=== PATIENT | female | born 1955 | race Caucasian/White ===

== ENCOUNTER → 2017-03-12 | Outpatient (CLI) | payer MEDICARE ==
--- NOTE | 2017-03-13 11:03 | MM ---
Reason for exam: screening (asymptomatic). Last mammogram was performed 1 year and 3 months ago. History: Patient is postmenopausal. Taking estrogen for 25 years. Physical Findings: A clinical breast exam by your physician is recommended on an annual basis and results should be correlated with mammographic findings. MG 3D Screening Mammo W/Cad Bilateral CC and MLO view(s) were taken. Prior study comparison: December 17, 2015, mammogram. October 03, 2014, mammogram. There are scattered fibroglandular densities. No significant changes when compared with prior studies. ASSESSMENT: Negative, BI-RAD 1 RECOMMENDATION: Routine screening mammogram of both breasts in 1 year.
== END | disposition home or self-care (01) ==
LOC: RADMAMWWP 13:13
PROVIDERS: ATTEND Family Medicine
DX: Z12.31 Encounter for screening mammogram for malignant neoplasm of breast (principal)
CPT/HCPCS: 77063; 77067

== ENCOUNTER → 2017-05-27 | Outpatient (CLI) | payer MEDICARE ==
[2017-05-27 16:51] LABS: Calcium 9.9 mg/dL (8.4-10.2); Potassium 4.7 mmol/L (3.5-5.1)
== END | disposition home or self-care (01) ==
LOC: LABWHC1 16:00
PROVIDERS: ATTEND Internal Medicine Clinical Cardiac Electrophysiology
DX: I10 Essential (primary) hypertension (principal)
CPT/HCPCS: 36415; 80048

== ENCOUNTER → 2018-06-01 | Outpatient (CLI) | payer MEDICARE ==
--- NOTE | 2018-06-02 11:39 | MM ---
Reason for exam: screening (asymptomatic). Last mammogram was performed 1 year and 3 months ago. History: Patient is postmenopausal. Taking estrogen for 25 years. Physical Findings: A clinical breast exam by your physician is recommended on an annual basis and results should be correlated with mammographic findings. MG 3D Screening Mammo W/Cad Bilateral CC and MLO view(s) were taken. Prior study comparison: March 12, 2017, bilateral MG 3d screening mammo w/cad. December 17, 2015, mammogram. The breast tissue is heterogeneously dense. This may lower the sensitivity of mammography. There are benign appearing round calcifications bilaterally including grouped calcifications in the right upper outer quadrant. There is no discrete abnormality. ASSESSMENT: Benign, BI-RAD 2 RECOMMENDATION: Routine screening mammogram of both breasts in 1 year.
== END | disposition home or self-care (01) ==
LOC: RADMAMWWP 09:11
PROVIDERS: ATTEND Family Medicine
DX: Z12.31 Encounter for screening mammogram for malignant neoplasm of breast (principal)
CPT/HCPCS: 77063; 77067

== ENCOUNTER → 2019-05-06 | Outpatient (CLI) | payer MEDICARE ==
[2019-05-06 16:20] LABS: Chol/HDL Ratio 2.79; LDL Cholesterol,Calculated 54.4 mg/dL (0.0-131.0); VLDL Calculation 29.6 mg/dL (5.00-40.00)
== END | disposition home or self-care (01) ==
LOC: LABWHC1 09:15
PROVIDERS: ATTEND Nurse Practitioner Adult Health
DX: E78.2 Mixed hyperlipidemia (principal)
CPT/HCPCS: 36415; 80061

== ENCOUNTER 2019-05-08 | Emergency (ER) | payer MEDICARE | END 2019-05-08 02:06 | disposition home or self-care (01) | CPT/HCPCS: 36415; 93005; 80053; 83605; 84484; 85025; 71046; 99284; 96374; 96361; J2930 ==

== ENCOUNTER → 2019-10-20 | Outpatient (CLI) | payer MEDICARE ==
[2019-10-20 23:37] LABS: Cyclic Citrull Pep IgG Unit <0.5 U/mL; Cyclic Citrullinated Pep IgG NEGATIVE (NEGATIVE)
== END | disposition home or self-care (01) ==
LOC: LABWHC1 12:33
PROVIDERS: ATTEND Family Medicine
DX: H04.123 Dry eye syndrome of bilateral lacrimal glands (principal); Z87.898 Personal history of other specified conditions
CPT/HCPCS: 36415; 86038; 86200; 86235; 86431

== ENCOUNTER → 2019-11-02 | Outpatient (CLI) | payer MEDICARE ==
--- NOTE | 2019-11-02 14:04 | CT ---
EXAMINATION TYPE: CT brain w con DATE OF EXAM: 11/02/2019 COMPARISON: 04/03/2011 HISTORY: Dizziness and dysdiadochokinesis. CT DLP: 1217.1 mGycm Automated exposure control for dose reduction was used. CONTRAST: CT scan of the head is performed with IV Contrast, patient injected with 100 mL of Isovue M300. FINDINGS: Metallic are artifacts limits assessment of portions of the left temporal lobe and posterio r fossa. Moderate generalized degenerative change. Periventricular low attenuation is nonspecific. No midline shift or mass effect. No acute hemorrhage. Calvarium intact. Craniocervical junction maintained. IMPRESSION: Degenerative and nonspecific white matter changes most typical of remote microvascular ischemia.
== END | disposition home or self-care (01) ==
LOC: RADCTMAIN 12:37
PROVIDERS: ATTEND Family Medicine
DX: R90.82 White matter disease, unspecified (principal); I67.82 Cerebral ischemia; R42 Dizziness and giddiness
CPT/HCPCS: 82565; 84520; 70460; 36415; Q9967

== ENCOUNTER 2019-12-03 17:21 | Emergency (ER) | payer MEDICARE ==
[2019-12-03 17:27] VITALS: RESP 16; TEMP 98.4
--- NOTE | 2019-12-03 18:24 | XR ---
EXAMINATION TYPE: XR shoulder complete LT DATE OF EXAM: 12/03/2019 COMPARISON: NONE HISTORY: Fall. Pain. TECHNIQUE: 3 views FINDINGS: I see no fracture nor dislocation. There is minimal spurring at the glenohumeral joint. The re is old healed fracture of the left clavicle. There is extensive calcified granulomatous change in the mediastinum. IMPRESSION: No acute abnormality of the left shoulder.
[2019-12-03 18:43] VITALS: BP 119/86; PULSE 85
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
== END 2019-12-03 19:21 | disposition home or self-care (01) ==
LOC: EC 17:21
DX: S40.022A Contusion of left upper arm, initial encounter (principal); V94.0XXA Hitting object or bottom of body of water due to fall from watercraft, initial encounter; I10 Essential (primary) hypertension; E11.9 Type 2 diabetes mellitus without complications; F32.9 Major depressive disorder, single episode, unspecified; Z79.82 Long term (current) use of aspirin; Z79.899 Other long term (current) drug therapy; Z79.84 Long term (current) use of oral hypoglycemic drugs; Z79.890 Hormone replacement therapy; Z88.1 Allergy status to other antibiotic agents; Z91.048 Other nonmedicinal substance allergy status; Z88.8 Allergy status to other drugs, medicaments and biological substances
CPT/HCPCS: 99283

== ENCOUNTER → 2020-01-20 | Outpatient (CLI) | payer MEDICARE ==
--- NOTE | 2020-01-23 12:14 | MM ---
Reason for exam: screening (asymptomatic). Last mammogram was performed 1 year and 8 months ago. History: Patient is postmenopausal. Took estrogen for 25 years. Physical Findings: A clinical breast exam by your physician is recommended on an annual basis and results should be correlated with mammographic findings. MG 3D Screening Mammo W/Cad Bilateral CC and MLO view(s) were taken. Prior study comparison: June 01, 2018, bilateral MG 3d screening mammo w/cad. March 12, 2017, bilateral MG 3d screening mammo w/cad. There are scattered fibroglandular densities. Posterior right upper outer quadrant focal asymmetry is larger and more defined. ASSESSMENT: Incomplete: need additional imaging evaluation, BI-RAD 0 RECOMMENDATION: Special view mammogram and ultrasound of the right breast. (3D) [facility] will attempt to contact patient to return for supplemental views and ultrasound.
== END | disposition home or self-care (01) ==
LOC: RADMAMWWP 10:47
PROVIDERS: ATTEND Family Medicine
DX: Z12.31 Encounter for screening mammogram for malignant neoplasm of breast (principal)
CPT/HCPCS: 77063; 77067

== ENCOUNTER → 2020-01-25 | Outpatient (CLI) | payer MEDICARE ==
--- NOTE | 2020-01-25 11:48 | MM ---
Reason for exam: additional evaluation requested from abnormal screening. Last mammogram was performed less than 1 month ago. History: Patient is postmenopausal. Took estrogen for 25 years. Physical Findings: Nurse Summary: 1cm nodule in the right breast at 11 o'clock (nurse mj). MG 3D Work Up W/Cad RT Spot compression CC, spot compression ML, and LM view(s) were taken of the right breast. Prior study comparison: January 20, 2020, bilateral MG 3d screening mammo w/cad. June 01, 2018, bilateral MG 3d screening mammo w/cad. There are scattered fibroglandular densities. Finding is changed when compared to the most recent exam. These results were verbally communicated with the patient and result sheet given to the patient on 01/25/20. ASSESSMENT: Incomplete: need additional imaging evaluation, BI-RAD 0 RECOMMENDATION: Ultrasound of the right breast.
--- NOTE | 2020-01-25 11:49 | USB ---
Reason for exam: additional evaluation requested from abnormal screening. History: Patient is postmenopausal. Took estrogen for 25 years. US Breast Workup Limited RT Right limited breast ultrasound including focal area of concern, retroareolar and axilla demonstrates a 0.3 x 1.2 x 0.6cm oval lymph node at 11 o'clock BB and a 1.5 x 1.3 x 1.0cm oval lymph node at the axilla. These results were verbally communicated with the patient and result sheet given to the patient on 01/25/20. ASSESSMENT: Probably benign, BI-RAD 3 RECOMMENDATION: Follow-up diagnostic mammogram of the right breast in 6 months.
== END | disposition home or self-care (01) ==
LOC: RADMAMWWP 09:28
PROVIDERS: ATTEND Family Medicine
DX: R92.8 Other abnormal and inconclusive findings on diagnostic imaging of breast (principal)
CPT/HCPCS: 77065; 76642; G0279; 77061

== ENCOUNTER → 2020-05-28 | Outpatient (CLI) | payer MEDICARE ==
[2020-05-28 22:59] LABS: Albumin 4.6 g/dL (3.80-4.90); Albumin/Globulin Ratio 2.56 (1.60-3.17); Anion Gap 7.6 mmol/L (4.00-12.00); Calcium 10.2 mg/dL (8.7-10.3); Carbon Dioxide 27.4 mmol/L (21.6-31.8); Chol/HDL Ratio 2.51; Globulin 1.8 g/dL (1.6-3.3); LDL Cholesterol,Calculated 50.8 mg/dL (0.0-131.0); Non-African American GFR(CKD) 58.7 (60.0-200.0); Potassium 4.8 mmol/L (3.5-5.5); Total Bilirubin 0.6 mg/dL (0.2-1.2); Total Protein 6.4 g/dL (6.2-8.2); VLDL Calculation 17.2 mg/dL (5.00-40.00)
== END | disposition home or self-care (01) ==
LOC: LABWHC1 09:10
PROVIDERS: ATTEND Nurse Practitioner Adult Health
DX: E78.00 Pure hypercholesterolemia, unspecified (principal)
CPT/HCPCS: 36415; 80053; 80061

== ENCOUNTER → 2020-07-26 | Outpatient (CLI) | payer MEDICARE ==
--- NOTE | 2020-07-26 13:48 | MM ---
Reason for exam: follow-up at short interval from prior study. Last mammogram was performed 6 months ago. History: Patient is postmenopausal. Took estrogen for 25 years. Physical Findings: Nurse did not find any significant physical abnormalities on exam. MG 3D Diag Mammo W/Cad RT CC, MLO, and XCCL view(s) were taken of the right breast. Prior study comparison: January 25, 2020, right breast MG 3d work up w/cad RT. January 20, 2020, bilateral MG 3d screening mammo w/cad. The breast tissue is heterogeneously dense. This may lower the sensitivity of mammography. Finding: Right 10 o'clock suspicious increased heterogeneous calcifications 10cm from nipple. Underlying 7mm nodule. Right ultrasound recommended. Increase in number of calcifications since January 20, 2020 and January 25, 2020. These results were verbally communicated with the patient and result sheet given to the patient on 07/26/20. ASSESSMENT: Incomplete: need additional imaging evaluation, BI-RAD 0 RECOMMENDATION: Ultrasound of the right breast.
--- NOTE | 2020-07-26 13:50 | USB ---
Reason for exam: additional evaluation requested from abnormal screening. History: Patient is postmenopausal. Took estrogen for 25 years. US Breast Workup Limited RT Right limited breast ultrasound including focal area of concern, retroareolar and axilla demonstrates a 0.9cm oval lymph node at the axilla tail. No sonographic finding for underlying nodule. Stereotactic biopsy for increased calcifications. These results were verbally communicated with the patient and result sheet given to the patient on 07/26/20. ASSESSMENT: Suspicious, BI-RAD 4 RECOMMENDATION: Stereotactic core biopsy of the right breast. Called Dr. Moyer's office with mammographic findings and has scheduled an appointment for the patient for 07/27/20 at 12:[address] Loaiza. Biopsy scheduled for 08/03/20 at 8:00. PRELIMINARY REPORT CALLED AND FAXED TO DR. LOAIZA ON 07/26/20.
== END | disposition home or self-care (01) ==
LOC: RADMAMWWP 10:03
PROVIDERS: ATTEND Family Medicine
DX: N63.10 Unspecified lump in the right breast, unspecified quadrant (principal); R92.1 Mammographic calcification found on diagnostic imaging of breast; Z78.0 Asymptomatic menopausal state
CPT/HCPCS: 77065; 76642; G0279; 77061

== ENCOUNTER → 2020-07-27 | Outpatient (CLI) | payer MEDICARE ==
[2020-07-27 11:47] VITALS: BP 126/84; PULSE 76; RESP 18; TEMP 97.9
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
== END ==
LOC: WWCWWP 11:35
PROVIDERS: ATTEND Surgery
DX: R92.8 Other abnormal and inconclusive findings on diagnostic imaging of breast (principal); N60.11 Diffuse cystic mastopathy of right breast; N60.12 Diffuse cystic mastopathy of left breast; K57.90 Diverticulosis of intestine, part unspecified, without perforation or abscess without bleeding; H91.92 Unspecified hearing loss, left ear; R42 Dizziness and giddiness; B39.9 Histoplasmosis, unspecified; Z87.442 Personal history of urinary calculi; E11.9 Type 2 diabetes mellitus without complications; I10 Essential (primary) hypertension; J44.9 Chronic obstructive pulmonary disease, unspecified; F32.9 Major depressive disorder, single episode, unspecified; Z79.84 Long term (current) use of oral hypoglycemic drugs; Z79.899 Other long term (current) drug therapy

== ENCOUNTER → 2020-08-03 | Day surgery (SDC) | payer MEDICARE ==
[2020-08-03 07:50] VITALS: BP 134/80; PULSE 90; RESP 16; TEMP 98.1
--- NOTE | 2020-08-03 09:06 | P.PCN ---
Date of Procedure: 08/03/20 Preoperative Diagnosis: Microcalcifications of concern right breast Postoperative Diagnosis: Same Procedure(s) Performed: Right breast stereotactic core biopsy Anesthesia: local Surgeon: Nicole Loaiza Pathology: other (Breast tissue, microcalcifications of concern included in specimen) Condition: stable Disposition: same day Indications for Procedure: Microcalcifications of concern right breast located at 10:00 Operative Findings: Radiographic specimen revealed microcalcifications of concern Description of Procedure: Ronaldo is a 65-year-old white female who on a mammogram was noted to have an area of increasing microcalcifications in the right breast at 10:00. This appeared to be associated with a nodule however ultrasound was performed and no nodule was identified at this site. Therefore stereotactic core biopsy was recommended. Risks and benefits of the procedure as well as alternatives were discussed with the patient and she wished to proceed. The patient was brought to the stereotactic core biopsy room. She was po sitioned on the lo-rad table. A vibratory pile driver film was obtained. The area of concern was identified. A lateral to medial approach was utilized. The lesion was targeted. The breast was prepped using chlorhexidine. 20 mL of 1% lidocaine were used to anesthetize the area of concern. A 9-gauge vacuum-assisted core rotating biopsy needle was driven to the correct coordinates. A prefire film was obtained. The needle was noted to be in the correct location. The needle was fired. Post-fire film was obtained. The needle was noted to be in the correct location. 12 core biopsy samples were obtained. Radiograph of the specimen revealed the area of concern had been adequately sampled with inclusion of microcalcifications within the specimen. A secure everardo top-chicken hatchery helper was then deployed and left in place. Radiograph revealed this to be in the correct location. The patient tolerated the procedure in stable condition. The specimen was sent to pathology. The patient will follow-up Dr. Harper next week.
--- NOTE | 2020-08-03 20:24 | MM ---
EXAMINATION TYPE: MG stereo VAD BX RT DATE OF EXAM: 08/03/2020 COMPARISON: 07/26/2020 and 01/25/2020 CLINICAL HISTORY: 65-year-old female referred for stereotactic core needle biopsy of right breast microcalcifications, R92.8. TECHNIQUE: Stereotactic guided core biopsy of the right breast. FINDINGS: The procedure of stereotactic guided core biopsy was explained to the patient. Benefits, alternatives, and risks were discussed. An informed consent was then obtained. The shortness pathway for biopsy was chosen. Shortness pathway was a superior approach. I performed the localization, then surgeon, Dr. Leroy Ramachandran performed the remainder of the procedure. A vacuum assisted biopsy gun was used to obtain multiple core samples. The patient tolerated the procedure well without any immediate complication. The patient was kept in the radiology department for short stay after the procedure and then discharged home in stable condition. Targeted calcifications are identified in specimen mammogram. Post biopsy mammogram shows the clip to appear in satisfactory position relative to the targeted area of concern on the preprocedure images. Some minimal residual microcalcifications are noted adjacent to the clip. IMPRESSION: SUCCESSFUL, UNCOMPLICATED STEREOTACTIC GUIDED CORE BIOPSY OF POSTERIOR UPPER OUTER QUADRANT SITE OF MICROCALCIFICATIONS IN THE RIGHT BREAST. SOME MINIMAL RESIDUAL CALCIFICATIONS ARE PRESENT ADJACENT TO THE CLIP. FULL PATHOLOGY RESULTS TO FOLLOW. Pathology Results: High Risk RIGHT BREAST, STEREOTACTIC CORE BIOPSY: Flat epithelial atypia (FEA/ADH) with associated calcifications and focal atypical lobular hyperplasia (ALH). Background fibrocystic changes including columnar cell change and columnar cell hyperplasia. Recommendation Surgical consult of the right breast. SAMUEL
== END ==
LOC: RADMAMWWP 07:09
PROVIDERS: ATTEND Surgery
DX: N60.11 Diffuse cystic mastopathy of right breast (principal); R92.1 Mammographic calcification found on diagnostic imaging of breast; R92.8 Other abnormal and inconclusive findings on diagnostic imaging of breast; Z88.1 Allergy status to other antibiotic agents; Z88.8 Allergy status to other drugs, medicaments and biological substances; Z91.048 Other nonmedicinal substance allergy status
CPT/HCPCS: 88305; 19081; A4648; J2001

== ENCOUNTER → 2020-08-10 | Outpatient (CLI) | payer MEDICARE ==
[2020-08-10 14:09] VITALS: BP 122/83; PULSE 95; RESP 18; TEMP 98.3
--- NOTE | 2020-08-10 14:12 | P.PN ---
Subjective Progress Note Date: 08/10/20 Principal diagnosis: Atypical lobular hyperplasia on stereotactic core biopsy Ronaldo is a 65 year old white female status [place] [address]. Pathology revealed flat epithelial atypia as well as focal atypical lobular hyperplasia. She tolerated the procedure well. Objective - Vital Signs Vital signs: Vital Signs Temp 98.3 F 08/10/20 14:05 Pulse 95 08/10/20 14:05 Resp 18 08/10/20 14:05 BP 122/83 08/10/20 14:05 Pulse Ox 97 08/10/20 14:05 Intake & Output 08/09/20 08/10/20 08/10/20 18:59 06:59 18:59 Weight 87.997 kg - Exam BMI 31.3 - Constitutional General appearance: Present: average body habitus - EENT Eyes: Present: EOMI ENT: Present: hearing grossly normal - Integumentary Integumentary Comment(s): Biopsy site right breast clean and dry, no evidence of infection, mild ecchymosis Assessment and Plan Assessment: Impression: 1. Atypical lobular hyperplasia/fat flat epithelial atypia right breast inserted to core biopsy Plan: 1. Needle localization excisional lumpectomy right breast, possible hyperplastic tissue transfer CC: Dr. Moyer
== END ==
LOC: WWCWWP 13:43
PROVIDERS: ATTEND Surgery
DX: N60.91 Unspecified benign mammary dysplasia of right breast (principal); Z88.1 Allergy status to other antibiotic agents; Z91.041 Radiographic dye allergy status; Z88.7 Allergy status to serum and vaccine; Z88.5 Allergy status to narcotic agent

== ENCOUNTER 2020-09-11 12:10 | Day surgery (SDC) | payer MEDICARE ==
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
[2020-09-05 13:09] VITALS: BMI 31.9
[~2020-09-11 12:10] MED LIST: DEXAMETHASONE SOD PHOSPHATE 4 MG/ML 1 ML VIAL IV ONE; HEPARIN SODIUM,PORCINE/PF 5,000 UNIT/0.5 ML SYRINGE SQ PRN; HYDROmorphone 0.5 MG/0.5 ML SYRINGE IVP PRN; LACTATED RINGERS 1,000 ML IV SCH; MIDAZOLAM 2 MG/2 ML VIAL IV PRN; ONDANSETRON 4 MG/2 ML VIAL IVP ONE; Pre Op ABX Message 1 EACH MISC MISCELLANE ONE
[2020-09-11] MEDS ORDERED: LIDOCAINE 1% (10MG/ML) FOR IV START INTRADERMA ONE (13:01)
[2020-09-11 13:12] LABS: Glucose,Whole Blood 115 mg/dL (75-99)
[2020-09-11] MEDS ORDERED: LIDOCAINE 1% INJ 10MG/ML (20 ML MDV) SQ ONE ×3 (13:57→15:42)
--- NOTE | 2020-09-11 14:49 | MM ---
EXAMINATION TYPE: MG pre op needle loc RT DATE OF EXAM: 09/11/2020 COMPARISON: 08/03/2020, 07/26/2020 CLINICAL HISTORY: Abnormal prior mammogram TECHNIQUE: Needle localization with wire placement and surgical excision of area of concern in the ri t breast. FINDINGS: The procedure of needle localization with wire placement and than surgical excision was exp lained to the patient. Benefits, alternatives, and risks were discussed. An informed consent was th en obtained. The shortest pathway for procedure was chosen. Shortest pathway was lateral approach. The overlying skin was prepped and draped in usual sterile fashion. Lidocaine buffered with bicarbonate was used a s anesthetic into the skin and subcutaneous tissue up to the level of area of concern. A 7 cm needle was used. It was placed via a right approach under mammographic guidance. Subsequent 90 degrees ma mmogram show the needle to be in satisfactory position relative to the targeted area. At this point, wire was placed and the needle was withdrawn. The wire was fixed to patient's skin. Images were ma rked for surgeon. The patient tolerated the procedure well without any immediate complication. The patient was kept in the radiology department for short stay after the procedure and then taken to surgery for surgical e xcision. IMPRESSION: Successful, uncomplicated needle localization with wire placement and surgical excision o f high risk lesion in the right breast, full pathology results to follow.
[2020-09-11] MEDS ORDERED: KETAMINE 10 MG/ML 20 ML VIAL ONE (15:15)
[2020-09-11] MEDS ORDERED: PROPOFOL 10 MG/ML 20 ML VIAL IV ONE (15:15)
[2020-09-11] MEDS ORDERED: LIDOCAINE 1% INJ 10MG/ML (20 ML MDV) ONE (15:15)
[2020-09-11] MEDS ORDERED: PHENYLEPHRINE-0.9% NACL SYG 1,000 MCG/10 ML SYRINGE ONE (15:15)
[2020-09-11] MEDS ORDERED: fentaNYL (PF) 50 MCG/ML 2 ML AMP ONE (15:15)
[2020-09-11] MEDS ORDERED: MIDAZOLAM 2 MG/2 ML VIAL ONE (15:15)
--- NOTE | 2020-09-11 16:29 | P.OP ---
Date of Procedure: 09/11/20 Preoperative Diagnosis: Atypia on core biopsy right breast Postoperative Diagnosis: Same Procedure(s) Performed: Needle localization excisional biopsy right breast Anesthesia: ABELARDOA Surgeon: Nicole Loaiza Estimated Blood Loss (ml): 5 IV fluids (ml): 400 Pathology: other (Breast tissue) Condition: stable Disposition: same day Indications for Procedure: Atypia on core biopsy Operative Findings: Fibrofatty breast tissue Description of Procedure: Following needle localization of an area of concern in the right breast the patient was brought to the operating room. Following induction of anesthesia the right breast was prepped and draped in a sterile fashion. An incision was made and carried down to the localizing wire. Surrounding tissue was excised. The specimen was painted for orientation. Radiograph of the specimen revealed the lesion of concern had been removed. Titanium clips were placed. The cavity was examined for hemostasis. The cavity was closed with 3-0 Vicryl sutures. The skin was closed using 4-0 Monocryl. The patient tolerated the procedure in stable condition. All instrument and sponge counts were correct at the end of the case.
--- NOTE | 2020-09-11 16:31 | P.DS ---
Providers Attending physician: Nicole Loaiza Primary care physician: Bruno Moyer Plan - Discharge Summary Discharge Rx Participant: No New Discharge Prescriptions: No Action Spironolactone [Aldactone] 25 mg PO DAILY Atorvastatin [Lipitor] 40 mg PO HS Aspirin 81 mg PO DAILY Cholecalciferol [Vitamin D3 (25 Mcg = 1000 Iu)] 1,000 mcg PO DAILY Losartan [Cozaar] 50 mg PO DAILY Kefir 1 unit PO DAILY carvediloL [Coreg] 3.125 mg PO BID Albuterol Sulfate [Ventolin HFA] 1 - 2 puff INHALATION Q6H PRN PRN Reason: Shortness Of Breath Ascorbic Acid [Vitamin C] 500 mg PO DAILY Furosemide [Lasix] 20 mg PO DAILY PRN PRN Reason: kidney stones Turmeric Root Extract [Turmeric] 500 mg PO DAILY Andrés Care 2 tab PO DAILY Cyanocobalamin (Vitamin B-12) [Vitamin B-12] 1,000 mcg PO DAILY Cinnamon Bark [Cinnamon] 500 mg PO DAILY Lifitegrast [Xiidra] 1 dropper BOTH EYES BID metFORMIN HCL 500 mg PO BID Discharge Medication List Aspirin 81 mg PO DAILY 07/23/15 [History] Atorvastatin [Lipitor] 40 mg PO HS 07/23/15 [History] Spironolactone [Aldactone] 25 mg PO DAILY 07/23/15 [History] Albuterol Sulfate [Ventolin HFA] 1 - 2 puff INHALATION Q6H PRN 07/27/20 [History] Ascorbic Acid [Vitamin C] 500 mg PO DAILY 07/27/20 [History] Cholecalciferol [Vitamin D3 (25 Mcg = 1000 Iu)] 1,000 mcg PO DAILY 07/27/20 [History] Cinnamon Bark [Cinnamon] 500 mg PO DAILY 07/27/20 [History] Cyanocobalamin (Vitamin B-12) [Vitamin B-12] 1,000 mcg PO DAILY 07/27/20 [History] Furosemide [Lasix] 20 mg PO DAILY PRN 07/27/20 [History] Andrés Care 2 tab PO DAILY 07/27/20 [History] Kefir 1 unit PO DAILY 07/27/20 [History] Losartan [Cozaar] 50 mg PO DAILY 07/27/20 [History] Turmeric Root Extract [Turmeric] 500 mg PO DAILY 07/27/20 [History] Lifitegrast [Xiidra] 1 dropper BOTH EYES BID 07/30/20 [History] carvediloL [Coreg] 3.125 mg PO BID 09/05/20 [History] metFORMIN HCL 500 mg PO BID 09/05/20 [History] Follow up Appointment(s)/Referral(s): Nicole Loaiza MD [STAFF PHYSICIAN] - 09/21/20 8:40 am Activity/Diet/Wound Care/Special Instructions: Do not drive for 24 hours from discharge May shower after 48 hours Wear bra at all times Do not drive if using narcotic pain medication Discharge Disposition: HOME SELF-CARE
[2020-09-11 16:49] VITALS: TEMP 96.4
[2020-09-11 18:00] VITALS: RESP 16
[2020-09-11 18:01] VITALS: BP 124/80; PULSE 72
--- NOTE | 2020-09-12 07:47 | MM ---
2 views right breast specimen INDICATION: Atypical prior right breast biopsy COMPARISON: 08/03/2020 FINDINGS: 2 views of right breast abdomen demonstrate distal localization wire, biopsy clip and calcifications. For full details please see the surgical report. IMPRESSION: 2 views of right breast abdomen demonstrate distal localization wire, biopsy clip and calcifications. For full details please see the surgical report.
== END 2020-09-11 18:15 | disposition home or self-care (01) ==
LOC: OR 12:10
PROVIDERS: ATTEND Surgery
DX: N60.81 Other benign mammary dysplasias of right breast (principal); J44.9 Chronic obstructive pulmonary disease, unspecified; E11.9 Type 2 diabetes mellitus without complications; I10 Essential (primary) hypertension; Z79.82 Long term (current) use of aspirin; Z79.84 Long term (current) use of oral hypoglycemic drugs
CPT/HCPCS: 19281; 19125; 76098; J2250; J1100; J2405; J2001; J3010; J2370; J2704; J1644

== ENCOUNTER → 2020-09-21 | Outpatient (CLI) | payer MEDICARE ==
[2020-09-21 08:50] VITALS: BP 128/83; PULSE 76; RESP 18; TEMP 98.3
--- NOTE | 2020-09-21 09:14 | P.PN ---
Subjective Progress Note Date: 09/21/20 Principal diagnosis: Invasive ductal carcinoma right breast Ronaldo is a 65-year-old white female status post right breast needle [place] excision[place] [address]. Pathology revealed invasive ductal carcinoma with cribriform and apocrine features. She has focal intermediate grade DCIS as well. All margins were negative. The patient postoperatively has done well but did develop some ecchymosis in the inferior aspect of the right breast. The results of the biopsy are discussed with the patient. The consideration of sentinel node biopsy was discussed as well. Additionally treatment options for the cancer ranging from mastectomy to radiation therapy were discussed. At this time it is not felt that further surgery is necessary of the breast and that lumpectomy with radiation therapy would be a good option. Her case is going to be presented at tumor board next week and we will discuss the need for sentinel node biopsy. Family history: Maternal grandmother: of melanoma Brothers daughter: Breast cancer diagnosed at 40 stage IV she is doing well at this time Surgical history: Tonsillectomy Clavicular fracture Left wrist benign large cell bone cyst Left shoulder adhesive capsulitis Left debridement of shoulder repair Trapeziaectomy right hand Repair of retinal tear left Left cheek fibroma benign Trapeziaectomy left hand with tendon transfer Most surgery left shoulder Left kidney stone lithotripsy Release compression of tibial nerve/tarsal tunnel syndrome Multiple surgeries to her right foot Implanted left ear for deafness Medical history: Histoplasmosis Kidney stones Diverticular disease Deaf and left ear Vertical Social history: Nicotine: Negative Alcohol: Negative Drugs: Negative Objective - Vital Signs Vital signs: Vital Signs Temp 98.3 F 09/21/20 08:47 Pulse 76 09/21/20 08:47 Resp 18 09/21/20 08:47 BP 128/83 09/21/20 08:47 Pulse Ox 96 09/21/20 08:47 Intake & Output 09/20/20 09/21/20 09/21/20 18:59 06:59 18:59 Weight 89.358 kg - Exam BMI 32.8 - Constitutional General appearance: Present: average body habitus, cooperative - EENT Eyes: Present: EOMI ENT: Present: hearing grossly normal - Neck Neck: Present: normal ROM - Respiratory Respiratory: bilateral: CTA - Cardiovascular Rhythm: regular Heart sounds: normal: S1, S2 - Integumentary Integumentary Comment(s): Incision clean and dry right breast inferior ecchymosis which is resolving, no evidence of hematoma or infection - Musculoskeletal Musculoskeletal: Present: gait normal - Psychiatric Psychiatric: Present: A&O x's 3, appropriate affect, intact judgment & insight Assessment and Plan Assessment: Impression: Stage I a right breast invasive ductal carcinoma Plan: 1. Presentation of case at tumor board 2. Probable sentinel node biopsy 3. Cardiac clearance
== END | disposition home or self-care (01) ==
LOC: WWCWWP 08:31
PROVIDERS: ATTEND Surgery
DX: Z53.9 Procedure and treatment not carried out, unspecified reason (principal)

== ENCOUNTER 2020-10-02 14:14 | Day surgery (SDC) | payer MEDICARE ==
[2020-09-27 14:19] VITALS: BMI 32.4
[~2020-10-02 14:14] MED LIST changes: -DEXAMETHASONE SOD PHOSPHATE 4 MG/ML 1 ML VIAL IV ONE; -HYDROmorphone 0.5 MG/0.5 ML SYRINGE IVP PRN; +LIDOCAINE 1% (10MG/ML) FOR IV START INTRADERMA PRN; +METOCLOPRAMIDE 5 MG/ML 2 ML VIAL IVP PRN; -MIDAZOLAM 2 MG/2 ML VIAL IV PRN; -ONDANSETRON 4 MG/2 ML VIAL IVP ONE; +SCOPOLAMINE 1.5MG/72HR PATCH TRANSDERM ONE
[2020-10-02 15:05] LABS: Glucose,Whole Blood 97 mg/dL (75-99)
[2020-10-02] MEDS: ONDANSETRON 4 MG/2 ML VIAL IVP ONE ×2 (15:08→17:36)
[2020-10-02] MEDS ORDERED: LIDOCAINE 1% INJ 10MG/ML (20 ML MDV) ONE (15:44)
[2020-10-02] MEDS ORDERED: fentaNYL (PF) 50 MCG/ML 2 ML AMP ONE (15:44)
[2020-10-02] MEDS ORDERED: PROPOFOL 10 MG/ML 20 ML VIAL IV ONE (15:44)
[2020-10-02] MEDS ORDERED: MIDAZOLAM 2 MG/2 ML VIAL ONE (15:44)
[2020-10-02] MEDS ORDERED: SUCCINYLCHOLINE CHLORIDE 100 MG/5 ML SYR IV ONE (15:44)
[2020-10-02] MEDS ORDERED: METHYLENE BLUE 50 MG/10 ML AMPUL INJ ONE (16:03)
--- NOTE | 2020-10-02 16:34 | P.DS ---
Providers Attending physician: Nicole Loaiza Primary care physician: Bruno Moyer Plan - Discharge Summary Discharge Rx Participant: Yes New Discharge Prescriptions: No Action Spironolactone [Aldactone] 25 mg PO DAILY Atorvastatin [Lipitor] 40 mg PO HS Aspirin 81 mg PO DAILY Cholecalciferol [Vitamin D3 (25 Mcg = 1000 Iu)] 1,000 mcg PO DAILY Losartan [Cozaar] 25 mg PO DAILY Kefir 1 unit PO DAILY carvediloL [Coreg] 3.125 mg PO BID Albuterol Sulfate [Ventolin HFA] 1 - 2 puff INHALATION Q6H PRN PRN Reason: Shortness Of Breath Ascorbic Acid [Vitamin C] 500 mg PO DAILY Furosemide [Lasix] 20 mg PO DAILY PRN PRN Reason: kidney stones Turmeric Root Extract [Turmeric] 500 mg PO DAILY Andrés Care 2 tab PO DAILY Cyanocobalamin (Vitamin B-12) [Vitamin B-12] 1,000 mcg PO DAILY Cinnamon Bark [Cinnamon] 500 mg PO DAILY Lifitegrast [Xiidra] 1 dropper BOTH EYES BID metFORMIN HCL 500 mg PO BID Discharge Medication List Aspirin 81 mg PO DAILY 07/23/15 [History] Atorvastatin [Lipitor] 40 mg PO HS 07/23/15 [History] Spironolactone [Aldactone] 25 mg PO DAILY 07/23/15 [History] Albuterol Sulfate [Ventolin HFA] 1 - 2 puff INHALATION Q6H PRN 07/27/20 [History] Ascorbic Acid [Vitamin C] 500 mg PO DAILY 07/27/20 [History] Cholecalciferol [Vitamin D3 (25 Mcg = 1000 Iu)] 1,000 mcg PO DAILY 07/27/20 [History] Cinnamon Bark [Cinnamon] 500 mg PO DAILY 07/27/20 [History] Cyanocobalamin (Vitamin B-12) [Vitamin B-12] 1,000 mcg PO DAILY 07/27/20 [History] Furosemide [Lasix] 20 mg PO DAILY PRN 07/27/20 [History] Andrés Care 2 tab PO DAILY 07/27/20 [History] Kefir 1 unit PO DAILY 07/27/20 [History] Losartan [Cozaar] 25 mg PO DAILY 07/27/20 [History] Turmeric Root Extract [Turmeric] 500 mg PO DAILY 07/27/20 [History] Lifitegrast [Xiidra] 1 dropper BOTH EYES BID 07/30/20 [History] carvediloL [Coreg] 3.125 mg PO BID 09/05/20 [History] metFORMIN HCL 500 mg PO BID 09/05/20 [History] Follow up Appointment(s)/Referral(s): Nicole Loaiza MD [STAFF PHYSICIAN] - 10/05/20 10:20 am Activity/Diet/Wound Care/Special Instructions: wear bra at all times unless showering or washing bra may shower after 48 hours Discharge Disposition: HOME SELF-CARE
[2020-10-02] MEDS: HYDROmorphone 0.5 MG/0.5 ML SYRINGE IVP PRN ×3 (16:52→17:22)
[2020-10-02 16:56] VITALS: TEMP 98
[2020-10-02 17:08] VITALS: RESP 16
[2020-10-02] MEDS ORDERED: ONDANSETRON 4 MG/2 ML VIAL ONE (17:31)
[2020-10-02] MEDS ORDERED: SODIUM CHLORIDE 0.9% 1,000 ML IV ONE (17:45)
[2020-10-02 18:37] VITALS: BP 138/82; PULSE 83
--- NOTE | 2020-10-02 21:47 | OP ---
OPERATIVE REPORT PRE PROCEDURE DIAGNOSIS: Right breast invasive ductal carcinoma. POSTPROCEDURE DIAGNOSIS: Right breast invasive ductal carcinoma. PROCEDURE: [place] node biopsy. Patient had prior lumpectomy. ESTIMATED BLOOD LOSS: Less than 10 mL. FLUIDS: 400. PROCEDURE: The patient was seen in the preoperative area after she had been seen in the radiology department and radioactive substance had been injected in the periareolar area. Following induction of anesthesia, the Neoprobe was used to interrogate the axilla. There was minimal uptake and therefore methylene blue was placed. Half-strength methylene blue 6 mL were injected into the periareolar area. The breast was massaged for 3 minutes. Following this, the right breast and axilla were prepped and draped in a sterile fashion. Using the Neoprobe, the area of greatest activity which was minimal was identified. An incision was made. This was carried down into the deep axillary tissues. A blue lymphatic was identified and traced to a lymph node. This lymph node was blue and was resected. Upon resection, radio activity in the lymph node at 10 seconds was noted to be 1168, the background 10 second count was 39. The axilla was irrigated. The deep tissues were closed using 3-0 Vicryl suture. The skin was closed using 4-0 Monocryl. The patient tolerated the procedure in stable condition. All instrument, sponge counts were correct at the end of the case. The patient did not have any other adenopathy that was of concern. MMODL / IJN: [id number] /
--- NOTE | 2020-10-03 10:16 | NM ---
EXAMINATION TYPE: NM sentinel node injection DATE OF EXAM: 10/02/2020 COMPARISON: NONE HISTORY: Breast cancer TECHNIQUE AND FINDINGS: The procedure of sentinel lymph node injection was explained to the patient. The benefits, alternatives, and risks were discussed. An informed consent was then obtained. Overlying skin is cleaned with sterile alcohol. Following this, 511 uCi Tc99m Tilmanocept was inject ed in the upper outer aspect of the right nipple intradermally. The patient tolerated the procedure well without any immediate complication. The patient was kept in the radiology department for short stay after the procedure and then taken to surgery for surgical p rocedure what is presumed intraoperative gamma probe will be used for sentinel lymph node detection. IMPRESSION: Right breast radiotracer injection for sentinel node localization as above.
== END 2020-10-02 19:45 | disposition home or self-care (01) ==
LOC: OR 14:14
PROVIDERS: ATTEND Surgery
DX: C50.911 Malignant neoplasm of unspecified site of right female breast (principal); Z79.82 Long term (current) use of aspirin; Z79.84 Long term (current) use of oral hypoglycemic drugs; J44.9 Chronic obstructive pulmonary disease, unspecified; I10 Essential (primary) hypertension; E78.5 Hyperlipidemia, unspecified; Z87.442 Personal history of urinary calculi
CPT/HCPCS: 38792; 19301; A9520; J2250; J2405; J2001; J3010; J0330; J2704; Q9968; J1170; J1644; 88305

== ENCOUNTER → 2020-10-05 | Outpatient (CLI) | payer MEDICARE ==
[2020-10-05 10:11] VITALS: BP 126/83; PULSE 71; RESP 16; TEMP 98.3
--- NOTE | 2020-10-05 11:10 | P.PN ---
Progress Note - Text Progress Note Date: 10/05/20 Ronaldo is a 65-year-old white [place] [address] which revealed a 7 mm focus of invasive ductal carcinoma with margins negative. She subsequently underwent a sentinel node biopsy on the right and [id number] which did not reveal no tissue but benign fibroadipose tissue. I have had a long discussion with the patient regarding the implications of this. We have talked about the possibility of going back and doing additional sentinel node biopsy versus watchful surveillance. I have also talked with Dr. Thad Avendano from radiation oncology and he feels comfortable to follow the patient closely clinically. The area which was removed in the axilla was radioactive and blue. No other radioactive blue node had been identified and no adenopathy which was probably of concern was identified in the axilla at the time of the sentinel node biopsy. The lesion is ER/ND positive and she will also be seen by medical oncology. At the time of the surgery the patient was noted to have a hemorrhagic cystic lesion on the epiglottis and she is following with ENT for respect to this The patient states after the procedure she had upper body aches which lasted for approximately 24 hours. Additionally she had hallucinations. The patient also complains of raspy throat after intubation for 2 days. Incision: Clean and dry Impression: Patient doing well postoperative Plan: 1. Appointment with medical oncology 2. appointment with radiation oncology 3. Follow-up here in 4 months time 4. right breast mammogram in 6 months 5. oncotype to be done At this time I would not plan to do additional surgery for the sentinel node. I feel that clinically at the time of surgery there were no other suspicious nodes in the axilla. Additionally the lesion which was removed was radioactive and blue although pathologically it appears to be a fat lobule. I discussed the above with the patient as well as with Dr. Avendano from radiation oncology and Dr. Mead from medical oncology. All are in agreement.
== END | disposition home or self-care (01) ==
LOC: WWCWWP 09:53
PROVIDERS: ATTEND Surgery
DX: Z48.817 Encounter for surgical aftercare following surgery on the skin and subcutaneous tissue (principal)

== ENCOUNTER → 2020-11-16 | Outpatient (CLI) | payer MEDICARE ==
[2020-11-16 09:13] VITALS: BP 123/76; PULSE 74; RESP 18; TEMP 98.4
--- NOTE | 2020-11-16 09:41 | P.PN ---
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 She subsequently underwent a sentinel node biopsy on the right and [id number] which did not reveal no tissue but benign fibroadipose tissue. I have had a long discussion with the patient regarding the implications of this. We have talked about the possibility of going back and doing additional sentinel node biopsy versus watchful surveillance. I have also talked with Dr. Thad Avendano from radiation oncology and he feels comfortable to follow the patient closely clinically. The area which was removed in the axilla was radioactive and blue. No other radioactive blue node had been identified and no adenopathy which was probably of concern was identified in the axilla at the time of the sentinel node biopsy. The lesion is ER/MS positive and she will also be seen by medical oncology. At the time of the surgery the patient was noted to have a hemorrhagic cystic lesion on the epiglottis and she is following with ENT for respect to this She was followed up with ENT with respect to this and it is felt that there is nothing to be concerned about, she has one more appointment with him in approximately 2 weeks. She had an oncotype done which was 0. Note reviewed of 10-05-20: The patient has been seen by Dr. Avendano from radiation oncology. After consideration of radiation therapy she has decided to decline this treatment. She has not yet met with medical oncology. She is considering hormone therapy. Objective - Vital Signs Vital signs: Vital Signs Temp 98.4 F 11/16/20 09:09 Pulse 74 11/16/20 09:09 Resp 18 11/16/20 09:09 BP 123/76 11/16/20 09:09 Pulse Ox 97 11/16/20 09:09 Intake & Output 11/15/20 11/16/20 11/16/20 18:59 06:59 18:59 Weight 86.183 kg - Exam BMI 33.7 - Constitutional General appearance: Present: cooperative - EENT Eyes: Present: EOMI ENT: Present: hearing grossly normal - Neck Neck: Present: normal ROM - Respiratory Respiratory: bilateral: CTA - Cardiovascular Heart sounds: normal: S1, S2 - Integumentary Integumentary: Present: normal turgor - Musculoskeletal Musculoskeletal: Present: gait normal - Psychiatric Psychiatric: Present: A&O x's 3, appropriate affect, intact judgment & insight - Additional findings Additional findings: incision right breast and axilla: clean and dry Assessment and Plan Assessment: Impression: Status post Mohs's History of kidney stones Mild diverticular disease Deficit the left ear Vertical Stage IA right breast cancer Plan: 1. Patient has decided against radiation therapy 2. Patient is going to meet with medical oncology 3. Patient to follow up here in 4 months 4. bilateral mammogram in February 2021 ( left was due in December, however, the patient wants to wait until February and have both done at the same time) Cc: Dr. Moyer
== END ==
LOC: WWCWWP 08:51
PROVIDERS: ATTEND Surgery
DX: C50.911 Malignant neoplasm of unspecified site of right female breast (principal); K57.90 Diverticulosis of intestine, part unspecified, without perforation or abscess without bleeding; H93.8X2 Other specified disorders of left ear; Z87.442 Personal history of urinary calculi; Z98.890 Other specified postprocedural states; Z91.041 Radiographic dye allergy status; Z88.8 Allergy status to other drugs, medicaments and biological substances

== ENCOUNTER → 2021-02-15 | Outpatient (CLI) | payer MEDICARE ==
--- NOTE | 2021-02-15 10:57 | BD ---
EXAMINATION TYPE: Axial Bone Density DATE OF EXAM: 02/15/2021 COMPARISON: NONE CLINICAL HISTORY: Height: 64 IN Weight: 189 LBS FRAX RISK QUESTIONS: History of Fracture in Adulthood: CLAVICLE FX AGE 55 Secondary Osteoporosis: 3. Menopause before 45: TOTAL HYST AGE 36 RISK FACTORS HISTORY OF: Active: YES Postmenopausal woman: TOTAL HYST AGE 36 Take estrogen and/or progesterone medications: TOOK HORMONES FROM AGE [age] Lost more than 2 inches in height since high school: YES 3" MEDICATIONS: Additional Medications: VIT D, COREG, LOSARTAN, ATORVASTATIN, SPIROLACTONE, FUROSEMIDE, ASPIRIN, METF ORMIN, HELIOCARE, XIIDRAVIT C, TUMERIC,CINNAMON,B12, APPLE CIDER VINEGAR, OMEGA 3 Additional History: BREAST CANCER EXAM MEASUREMENTS: Bone mineral densitometry was performed using the [employer] [place] System. Bone mineral density as measured about the Lumbar spine is: ----- L1-L4(G/cm2): 1.058 T Score Values are as follows: ----- L2: -1.1 ----- L3: -1.3 ----- L4: -0.7 ----- L1-L4: -1.0 Bone mineral density BASELINE Bone mineral density about the R hip (g/cm2): 0.905 Bone mineral density about the L hip (g/cm2): 0.872 T Score values are as follows: -----R Neck: -1.0 -----L Neck: -1.2 -----R Total: -0.4 -----L Total: -0.4 Bone mineral density BASELINE IMPRESSION: Osteopenia (T Score between -2.5 and -1). There is slightly increased risk of fracture and the patient may be considered for treatment. Re-Screen 2-5 years. NOTE: T-SCORE=SD OF THE YOUNG ADULT MEAN.
== END | disposition home or self-care (01) ==
LOC: RADBDWWP 07:48
PROVIDERS: ATTEND Internal Medicine Hematology & Oncology
DX: Z03.89 Encounter for observation for other suspected diseases and conditions ruled out (principal); C50.411 Malignant neoplasm of upper-outer quadrant of right female breast; M85.80 Other specified disorders of bone density and structure, unspecified site
CPT/HCPCS: 77080

== ENCOUNTER → 2021-03-14 | Outpatient (CLI) | payer MEDICARE ==
--- NOTE | 2021-03-15 11:09 | MM ---
Reason for exam: follow-up at short interval from prior study. Last mammogram was performed 8 months ago. History: Patient is postmenopausal, has history of breast cancer at age 65, and has history of high-risk lesion on a previous biopsy at age 65. Family history of breast cancer in maternal grandmother at age 50. Malignant MG pre op needle loc RT of the right breast, September 11, 2020. Lumpectomy of the right breast, September 11, 2020. High risk MG stereo VAD BX RT of the right breast, August 03, 2020. Took estrogen for 25 years. Taking antineoplastic for 1 month. Physical Findings: Nurse did not find any significant physical abnormalities on exam. MG 3D Diag Mammo W/Cad ROGE Bilateral CC and MLO view(s) were taken. Prior study comparison: July 26, 2020, right breast MG 3d diag mammo w/cad RT. January 25, 2020, right breast MG 3d work up w/cad RT. There are scattered fibroglandular densities. Post surgical changes right upper outer quadrant. No significant new findings when compared with previous films. These results were verbally communicated with the patient and result sheet given to the patient on 03/14/21. ASSESSMENT: Benign, BI-RAD 2 RECOMMENDATION: Follow-up diagnostic mammogram of both breasts in 1 year.
== END | disposition home or self-care (01) ==
LOC: RADMAMWWP 10:53
PROVIDERS: ATTEND Surgery
DX: R92.8 Other abnormal and inconclusive findings on diagnostic imaging of breast (principal); Z85.3 Personal history of malignant neoplasm of breast; Z78.0 Asymptomatic menopausal state; Z80.3 Family history of malignant neoplasm of breast
CPT/HCPCS: 77066; G0279; 77062

== ENCOUNTER → 2021-03-22 | Outpatient (CLI) | payer MEDICARE ==
[2021-03-22 11:27] VITALS: BP 127/84; PULSE 78; RESP 18; TEMP 98.1
--- NOTE | 2021-03-22 11:51 | P.PN ---
Subjective Progress Note Date: 03/22/21 Principal diagnosis: stage IA right breast invasive ductal cancer Invasive ductal carcinoma right breast Ronaldo is a 65-year-old white female status post right breast needle local excisional biopsy of an area of atypia on . Pathology revealed invasive ductal carcinoma with cribriform and apocrine features. She has focal intermediate grade DCIS as well. All margins were negative. After discussion an attempted sentinal node biopsy was preformed on 11-16-20, alt joaquin a radioactive blue node tissue was removed, no node was noted on pathology. She opted for no radiation therapy, she did discuss this with DR. Avendano. At this time the patient does not feel any lesions of concern in either breast. Bilateral mammogram performed on benign BIRADS 2. Additionally note from Dr. Wagner is reviewed from [id number]; she is presently on anestrazole. She is tolerating this without difficulty. Family history: Maternal grandmother: of melanoma Brothers daughter: Breast cancer diagnosed at 40 stage IV she is doing well at this time Surgical history: Tonsillectomy Clavicular fracture Left wrist benign large cell bone cyst Left shoulder adhesive capsulitis Left debridement of shoulder repair Trapeziaectomy right hand Repair of retinal tear left Left cheek fibroma benign Trapeziaectomy left hand with tendon transfer Most surgery left shoulder Left kidney stone lithotripsy Release compression of tibial nerve/tarsal tunnel syndrome Multiple surgeries to her right foot Implanted left ear for deafness Medical history: Histoplasmosis Kidney stones Diverticular disease Deaf and left ear Vertical Social history: Nicotine: Negative Alcohol: Negative Drugs: Negative Objective - Vital Signs Vital signs: Vital Signs Temp 98.1 F 03/22/21 11:18 Pulse 78 03/22/21 11:18 Resp 18 03/22/21 11:18 BP 127/84 03/22/21 11:18 Pulse Ox Intake & Output 03/21/21 03/22/21 03/22/21 18:59 06:59 18:59 Weight 86.636 kg - Exam BMI 32.8 - Constitutional General appearance: Present: cooperative - EENT Eyes: Present: EOMI ENT: Present: hearing grossly normal - Neck Neck: Present: normal ROM - Respiratory Respiratory: bilateral: CTA - Cardiovascular Rhythm: regular Heart sounds: normal: S1, S2 - Gastrointestinal General gastrointestinal: Present: soft - Integumentary Integumentary: Present: normal turgor - Musculoskeletal Musculoskeletal: Present: gait normal - Psychiatric Psychiatric: Present: A&O x's 3, appropriate affect, intact judgment & insight - Additional findings Additional findings: Breast Exam: BRA: 38C inspection: bilateral grade 2 ptosis Palpation: right breast: Well-healed scar from prior surgery, no dominant masses or nodules of concern Right axilla: No adenopathy of concern Left breast: Multiple positional exam no dominant masses or nodules of concern Left axilla: No adenopathy of concern Assessment and Plan Assessment: Impression: 1. Stage I a right breast invasive ductal carcinoma no evidence of recurrence Plan: Continue anastrozole/continue follow-up with medical oncology Follow-up here in 4 months bilateral mammogram in 1 year CC: Dr. Moyer
== END ==
LOC: WWCWWP 10:11
PROVIDERS: ATTEND Surgery
DX: Z08 Encounter for follow-up examination after completed treatment for malignant neoplasm (principal); Z85.3 Personal history of malignant neoplasm of breast; Z79.811 Long term (current) use of aromatase inhibitors; Z91.041 Radiographic dye allergy status; Z88.7 Allergy status to serum and vaccine; Z88.6 Allergy status to analgesic agent

== ENCOUNTER → 2021-09-24 | Outpatient (CLI) | payer MEDICARE | LOC: CPPFTMAIN 08:23 | PROVIDERS: ATTEND Family Medicine | DX: I37.1 Nonrheumatic pulmonary valve insufficiency (principal); J98.4 Other disorders of lung; Z91.041 Radiographic dye allergy status; Z88.6 Allergy status to analgesic agent; Z88.9 Allergy status to unspecified drugs, medicaments and biological substances | CPT/HCPCS: 94060; 94726; 94729 ==

== ENCOUNTER → 2022-03-24 | Outpatient (CLI) | payer MEDICARE ==
--- NOTE | 2022-03-24 13:30 | MM ---
Reason for Exam: Hx of breast cancer, conservation therapy. Last screening mammogram was performed 12 month(s) ago. Patient History: Menarche at age 11. First Full-Term at age 23. Left ovary removed at age 36. Right ovary removed at age 36. Hysterectomy at age 36. Postmenopausal. Patient has history of breast feeding. Breast cancer, right, age 65. Estrogen for 25 years until age 63. 09/11/2020, Lumpectomy on the Right side. 09/11/2020, Malignant Core Biopsy on the right side. 08/03/2020, High risk Core Biopsy on the right side. Maternal grandmother had breast cancer, age 50. Prior Study Comparison: 10/03/2014 Screening Mammogram, Unknown. 12/17/2015 Screening Mammogram, Unknown. 06/01/2018 Bilateral Screening Mammogram, [facility]. 01/20/2020 Bilateral Screening Mammogram, [facility]. 01/25/2020 Right Diagnostic Mammogram, [facility]. 01/25/2020 Right Diagnostic Ultrasound, [facility]. 07/26/2020 Right Diagnostic Mammogram, [facility]. 03/14/2021 Bilateral Diagnostic Mammogram, [facility]. Tissue Density: There are scattered fibroglandular densities. Findings: Analyzed By CAD. Postsurgical changes of the upper outer quadrant of the right breast. No new suspicious masses or calcifications within either breast. Benign round calcifications within both breasts. Overall Assessment: Benign, BI-RAD 2 Management: Diagnostic Mammogram of both breasts in 1 year. A clinical breast exam by your physician is recommended on an annual basis and results should be correlated with mammographic findings. This exam should not preclude additional follow-up of suspicious palpable abnormalities. Results were given to the patient verbally at the time of exam. Electronically signed and approved by: Bj Wesley D.O.
== END | disposition home or self-care (01) ==
LOC: RADMAMWWP 12:46
PROVIDERS: ATTEND Surgery
DX: Z85.3 Personal history of malignant neoplasm of breast (principal); Z78.0 Asymptomatic menopausal state; Z80.3 Family history of malignant neoplasm of breast
CPT/HCPCS: 77066; G0279; 77062

== ENCOUNTER → 2022-03-28 | Outpatient (CLI) | payer MEDICARE ==
[2022-03-28 12:55] VITALS: BP 147/80; PULSE 93; RESP 18; TEMP 97.6
--- NOTE | 2022-03-28 12:59 | P.PN ---
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 Pathology revealed invasive ductal carcinoma with cribriform and apocrine features. She has focal intermediate grade DCIS as well. All margins were negative. After discussion an attempted sentinal node biopsy was preformed on 11-16-20, although a radioactive blue node tissue was removed, no node was noted on pathology. She opted for no radiation therapy, she did discuss this with DR. Avendano. At this time the patient does not feel any lesions of concern in either breast. Bilateral mammogram performed on was benign BIRADS 2. She is presently on anestrazole. She is tolerating this without difficulty. She is not complaining of any lumps masses or nodules of concern in either breast. Family history: Maternal grandmother: of melanoma Brothers daughter: Breast cancer diagnosed at 40 stage IV she is doing well at this time Surgical history: Tonsillectomy Clavicular fracture Left wrist benign large cell bone cyst Left shoulder adhesive capsulitis Left debridement of shoulder repair Trapeziaectomy right hand Repair of retinal tear left Left cheek fibroma benign Trapeziaectomy left hand with tendon transfer Most surgery left shoulder Left kidney stone lithotripsy Release compression of tibial nerve/tarsal tunnel syndrome Multiple surgeries to her right foot Implanted left ear for deafness right breast lumpectomy and SNB Medical history: Histoplasmosis Kidney stones Diverticular disease Deaf in left ear Social history: Nicotine: Negative Alcohol: Negative Drugs: Negative Objective - Constitutional General appearance: Present: cooperative - EENT Eyes: Present: EOMI ENT: Present: hearing grossly normal - Neck Neck: Present: normal ROM - Respiratory Respiratory: bilateral: CTA - Cardiovascular Rhythm: regular Heart sounds: normal: S1, S2 - Gastrointestinal General gastrointestinal: Present: soft - Integumentary Integumentary: Present: normal turgor - Musculoskeletal Musculoskeletal: Present: gait normal - Psychiatric Psychiatric: Present: A&O x's 3, appropriate affect, intact judgment & insight - Additional findings Additional findings: Breast Exam: BRA: 38C Inspection: grade 3 ptosis palpation: right Breast: Well-healed scars from prior surgery, multiple positional exam no dominant masses or nodules of concern Right axilla: No adenopathy of concern Left breast: Multi-positional exam fibrocystic changes no dominant masses or nodules of concern Left axilla: No adenopathy of concern Assessment and Plan Assessment: Impression: Stage IA right breast invasive ductal carcinoma no evidence of recurrent cancer; 2020 Tolerating anastrozole with no difficulty Bilateral mammogram 03-24-22 BIRAD 2 Plan: Continue anastrozole/continue follow-up with medical oncology Bilateral mammogram February 2023 follow up here in 6 months CC: Dr. Damon
== END ==
LOC: WWCWWP 12:34
PROVIDERS: ATTEND Surgery
DX: D05.11 Intraductal carcinoma in situ of right breast (principal); Z79.811 Long term (current) use of aromatase inhibitors; Z91.041 Radiographic dye allergy status; Z88.8 Allergy status to other drugs, medicaments and biological substances

== ENCOUNTER → 2022-10-04 | Outpatient (CLI) | payer MEDICARE ==
--- NOTE | 2022-10-04 10:57 | MR ---
EXAMINATION TYPE: MR brain wo/w con DATE OF EXAM: 10/04/2022 10:40 AM COMPARISON: NONE HISTORY: Dizziness, poor balance, falling CONTRAST: Patient received 8 mL intravenous Gadavist gadolinium contrast. Multiplanar and multispin-echo imaging of the brain was performed . Pre and post contrast enhanced i mages are obtained. The ventricles, basal cisterns and sulci overlying the cerebral convexities are mildly enlarged. Sma ll remote insult left external capsule. There is evidence of mild periventricular white matter ischemic demyelination. Remote deep white matter insults are also noted. No acute edema is seen on diffusion weighted imaging. There is no evidence for midline shift or mass effect. Acute intracranial hemorrhage or extra-axial collection is not evident. No enhancing lesions are seen. The paranasal sinuses and mastoid air cells are well-aerated. IMPRESSION: Age-related atrophic and chronic small vessel ischemic change. No acute intracranial process at this time. No enhancing lesions are seen.
== END | disposition home or self-care (01) ==
LOC: RADMRIMAIN 09:48
PROVIDERS: ATTEND Family Medicine
DX: G31.1 Senile degeneration of brain, not elsewhere classified (principal); I67.82 Cerebral ischemia; R26.89 Other abnormalities of gait and mobility; R42 Dizziness and giddiness
CPT/HCPCS: 70553; A9585

== ENCOUNTER → 2023-03-25 | Outpatient (CLI) | payer MEDICARE ==
--- NOTE | 2023-03-26 11:05 | MM ---
Reason for Exam: Screening (asymptomatic). Last screening mammogram was performed 12 month(s) ago. Patient History: Menarche at age 11. First Full-Term at age 23. Left ovary removed at age 36. Right ovary removed at age 36. Hysterectomy at age 36. Postmenopausal. Patient has history of breast feeding. Breast cancer, right, age 65. Estrogen for 25 years until age 63. 09/11/2020, Lumpectomy on the Right side. 09/11/2020, Malignant Core Biopsy on the right side. 08/03/2020, High risk Core Biopsy on the right side. Maternal grandmother had breast cancer, age 50. Prior Study Comparison: 07/26/2020 Right Diagnostic Mammogram, [facility]. 03/14/2021 Bilateral Diagnostic Mammogram, [facility]. 03/24/2022 Bilateral MG 3D diag mammo w/cad ROGE, [facility]. Tissue Density: The breast tissue is heterogeneously dense. This may lower the sensitivity of mammography. Findings: Analyzed By CAD. Right upper outer breast benign calcifications. Right breast surgical clips. Left breast benign consolidations. There is no suspicious group of microcalcifications or new suspicious mass. Overall Assessment: Benign, BI-RAD 2 Management: Screening Mammogram of both breasts in [address] [facility] will attempt to contact patient to return for supplemental views and ultrasound if indicated. Patient should continue monthly self-breast exams. A clinical breast exam by your physician is recommended on an annual basis. This exam should not preclude additional follow-up of suspicious palpable abnormalities. Note on Dai scores and lifetime risk: 1. A Dai score greater than 3% is considered moderate risk. If this is the case, consider specialist referral to assess eligibility for a risk reducing agent. 2. If overall lifetime risk for the development of breast cancer is 20% or higher, the patient may qualify for future screening with alternating mammogram and breast MRI. Electronically signed and approved by: Fermin Levine DO
== END | disposition home or self-care (01) ==
LOC: RADMAMWWP 11:11
PROVIDERS: ATTEND Internal Medicine Hematology & Oncology
DX: Z12.31 Encounter for screening mammogram for malignant neoplasm of breast (principal); C50.411 Malignant neoplasm of upper-outer quadrant of right female breast; E78.5 Hyperlipidemia, unspecified; I10 Essential (primary) hypertension; Z71.3 Dietary counseling and surveillance; Z78.0 Asymptomatic menopausal state; Z80.3 Family history of malignant neoplasm of breast
CPT/HCPCS: 77063; 77067

== ENCOUNTER → 2023-07-06 | Outpatient (CLI) | payer MEDICARE ==
--- NOTE | 2023-07-08 19:59 | MR ---
EXAMINATION TYPE: MR brain and iac wo/w con DATE OF EXAM: 07/06/2023 7:29 PM CLINICAL INDICATION:Female, 67 years old with history of D33.3 BENIGN NEOPLASM OF CRANIAL NERVES; PHH , Hearing loss left ear, tinnitus, balance issues. Skull implant for cochlear [place] connect system. COMPARISON: 04/03/2011, 10/04/2022 TECHNIQUE: Multi planar, multi sequence imaging was performed through the brain. Specialized thin s equences were obtained through the internal auditory canals. Pre-and post gadolinium sequences were obtained. MR contrast: IV Contrast: 9 cc Gadavist FINDINGS: The jeffers-white junctions, ventricular system, and cisterns appear unremarkable. Scattered foci of hi gh T2 signal intensity are seen within the periventricular white matter. Midline structures show no a bnormality. Diffusion-weighted imaging shows no evidence of restricted diffusion. The susceptibility weighted images do not reveal any evidence for micro-hemorrhage. The bone marrow signal is within normal limits. Paranasal sinuses and mastoid air cells: Mild scattered paranasal sinus disease. Visualized orbits: Orbital contents are intact. After administration of gadolinium, no abnormal enhancement is seen. Left: There is enhancement of the left vestibule and cochlea with small area of enhancement measuring 3 mm in the internal auditory canal which is thought to extend through the cochlea aperture and into the basilar turn of the cochlea and vestibule and possibly the lateral semicircular canal. Compariso n for growth is difficult from 10/04/2022 given non-IAC technique on prior exam. The right internal auditory canal sequences demonstrate no significant irregularity. The 7th cranial nerves, 8 cranial nerves, and cerebellar pontine angles appear unremarkable. After the administrati on gadolinium, no abnormal enhancement is seen within the internal auditory canals. Vascular loop: None. IMPRESSION: 1. Small nodule of enhancement near the internal auditory Canal cochlea aperture which extends throu gh the aperture into the basilar turn of the cochlea as well as suspected into the vestibule and late ral semicircular canal. 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 2. No evidence of intracranial mass nor acute/subacute CVA. 3. No evidence of right internal auditory canal abnormality. 4. Nonspecific white matter changes, likely secondary to small vessel ischemic disease.
== END | disposition home or self-care (01) ==
LOC: RADMRIMAIN 17:52
PROVIDERS: ATTEND Otolaryngology Otology & Neurotology
DX: H93.12 Tinnitus, left ear (principal)
CPT/HCPCS: 70553; A9585

== ENCOUNTER 2024-03-11 08:21 | Day surgery (SDC) | payer MEDICARE ==
[2024-03-09 11:02] VITALS: BMI 31.3
[~2024-03-11 08:21] MED LIST changes: -HEPARIN SODIUM,PORCINE/PF 5,000 UNIT/0.5 ML SYRINGE SQ PRN; -LIDOCAINE 1% (10MG/ML) FOR IV START INTRADERMA PRN; -METOCLOPRAMIDE 5 MG/ML 2 ML VIAL IVP PRN; -Pre Op ABX Message 1 EACH MISC MISCELLANE ONE; -SCOPOLAMINE 1.5MG/72HR PATCH TRANSDERM ONE
[2024-03-11] MEDS ORDERED: PROPOFOL 10 MG/ML 20 ML VIAL IV ONE (09:04)
[2024-03-11 09:08] VITALS: TEMP 97.3
[2024-03-11] MEDS: LACTATED RINGERS 1,000 ML IV ONE (09:08)
--- NOTE | 2024-03-11 09:17 | P.PCN ---
Date of Procedure: 03/11/24 Procedure(s) Performed: BRIEF HISTORY: Patient is a 68-year-old pleasant white female scheduled for an elective colonoscopy as a part of screening for colon cancer. PROCEDURE PERFORMED: Colonoscopy. PREOPERATIVE DIAGNOSIS: Screening for colon cancer. IV sedation per Anesthesia. PROCEDURE: After informed consent was obtained, the patient, was brought into the endoscopy unit. IV sedation was administered by Anesthesia under continuous monitoring. Digital rectal examination was normal. Initially the Olympus CF-160 flexible video colonoscope was then inserted in the rectum, gradually advanced into the cecum without any difficulty. Careful examination was performed as the scope was gradually being withdrawn. Ileocecal valve and the appendiceal orifice were visualized and appeared normal. Prep was excellent. Mucosa of the cecum, ascending colon, transverse colon, descending colon, sigmoid colon, and rectum appeared normal. Scattered sigmoid diverticulosis. Retroflexion was performed in the rectum and no lesions were seen. The patient tolerated the procedure well. IMPRESSION: Normal-appearing colon from rectum to cecum with no evidence of colorectal neoplasia Scattered sigmoid diverticulosis. RECOMMENDATIONS: Findings of this examination were discussed with the patient with the patient as well as her family. She was advised to have repeat screening colonoscopy in 10 years..
[2024-03-11 09:23] VITALS: RESP 16
[2024-03-11 09:42] VITALS: BP 131/79; PULSE 88
== END 2024-03-11 10:20 | disposition home or self-care (01) ==
LOC: ORWHC2ENDO 08:21
PROVIDERS: ATTEND Internal Medicine Gastroenterology
DX: Z12.11 Encounter for screening for malignant neoplasm of colon (principal); K57.30 Diverticulosis of large intestine without perforation or abscess without bleeding; I10 Essential (primary) hypertension; E11.9 Type 2 diabetes mellitus without complications; G43.909 Migraine, unspecified, not intractable, without status migrainosus; Z79.84 Long term (current) use of oral hypoglycemic drugs; Z79.82 Long term (current) use of aspirin; Z79.899 Other long term (current) drug therapy; Z90.710 Acquired absence of both cervix and uterus; Z98.890 Other specified postprocedural states; Z88.8 Allergy status to other drugs, medicaments and biological substances; Z88.1 Allergy status to other antibiotic agents
CPT/HCPCS: J2704; G0121; 45378

== ENCOUNTER → 2024-03-28 | Outpatient (CLI) | payer MEDICARE ==
--- NOTE | 2024-03-28 11:55 | MM ---
Reason for Exam: Screening (asymptomatic). Last mammogram was performed 1 year(s) and 1 month(s) ago. Patient History: Menarche at age 11. First Full-Term at age 23. Left ovary removed at age 36. Right ovary removed at age 36. Hysterectomy at age 36. Postmenopausal. Patient has history of breast feeding. Breast cancer, right, age 65. Estrogen for 25 years until age 63. 09/11/2020, Lumpectomy on the Right side. 09/11/2020, Malignant Core Biopsy on the right side. 08/03/2020, High risk Core Biopsy on the right side. Maternal grandmother had breast cancer, age 50. Prior Study Comparison: 03/14/2021 Bilateral Diagnostic Mammogram, [facility]. 03/24/2022 Bilateral MG 3D diag mammo w/cad ROGE, [facility]. 03/25/2023 Bilateral MG 3D screening mammo w/cad, [facility]. Tissue Density: There are scattered areas of fibroglandular density. Findings: Analyzed By CAD. Posttreatment change to the right breast is redemonstrated. A few small benign appearing round calcifications bilaterally are redemonstrated. There is no suspicious new group of microcalcifications or new suspicious mass in either breast. Overall Assessment: Benign, BI-RAD 2 Management: Screening Mammogram of both breasts in 1 year. . Patient should continue monthly self-breast exams. A clinical breast exam by your physician is recommended on an annual basis. This exam should not preclude additional follow-up of suspicious palpable abnormalities. Note on Dai scores and lifetime risk: 1. A Dai score greater than 3% is considered moderate risk. If this is the case, consider specialist referral to assess eligibility for a risk reducing agent. 2. If overall lifetime risk for the development of breast cancer is 20% or higher, the patient may qualify for future screening with alternating mammogram and breast MRI. [facility], , 03/28/2024 11:52 AM. Electronically signed and approved by: Ricki Gruber M.D.
== END | disposition home or self-care (01) ==
LOC: RADMAMWWP 10:22
PROVIDERS: ATTEND Internal Medicine Hematology & Oncology
DX: Z12.31 Encounter for screening mammogram for malignant neoplasm of breast (principal); R92.323 Mammographic fibroglandular density, bilateral breasts; R92.1 Mammographic calcification found on diagnostic imaging of breast; Z78.0 Asymptomatic menopausal state; Z80.3 Family history of malignant neoplasm of breast; Z85.3 Personal history of malignant neoplasm of breast
CPT/HCPCS: 77063; 77067

== ENCOUNTER → 2024-03-28 | Outpatient (CLI) | payer MEDICARE ==
--- NOTE | 2024-03-28 11:47 | XR ---
EXAMINATION TYPE: XR thoracic spine complete, XR lumbosacral spine min 4V DATE OF EXAM: 03/28/2024 11:11 AM COMPARISON: None CLINICAL INDICATION: Female, 68 years old with history of [id number] BACK PAIN; PHH, pain TECHNIQUE: XR thoracic spine complete, XR lumbosacral spine min 4V views of the spine in Frontal and lateral projections. Frontal lateral and bilateral oblique views of the lumbar spine. FINDINGS: No evidence of acute fracture. There is scattered multilevel disk space narrowing without loss of ve rtebral body height. There is normal alignment of the thoracic vertebral bodies. Scattered osteophyte formation along the anterior and lateral aspects of the vertebral bodies. Neural foramen are patent given limitations of this exam. Spinal canal appears patent. Scattered calcified lymph nodes and calcified granulomas are seen throughout the mediastinum and thro ughout the lungs. Severe atherosclerosis of the arterial vessels which are. IMPRESSION: 1. No acute osseous pathology. 2. Moderate multilevel degeneration changes of the spine. [facility], , 03/28/2024 11:45 AM
== END | disposition home or self-care (01) ==
LOC: RADXRMAIN 10:33
PROVIDERS: ATTEND Family Medicine
DX: M47.814 Spondylosis without myelopathy or radiculopathy, thoracic region (principal)
CPT/HCPCS: 72072; 72110

== ENCOUNTER → 2024-04-20 | Outpatient (CLI) | payer MEDICARE ==
[2024-04-20 15:15] LABS: Basophils # (A) 0.05 X 10*3/uL (0.00-0.10); Basophils % (A) 0.4 %; Eosinophils # (A) 0.32 X 10*3/uL (0.04-0.35); Eosinophils % (A) 2.9 %; HCT 42.9 % (37.2-46.3); HGB 14.5 g/dL (12.0-15.0); Lymphocytes # (A) 1.26 X 10*3/uL (0.90-5.00); Lymphocytes % (A) 11.2 %; MCH 30.4 pg (27.0-32.0); MCHC 33.8 g/dL (32.0-37.0); MCV 89.9 FL (80.0-97.0); Mean Platelet Volume 10.1 FL (9.5-12.2); Monocytes # (A) 0.62 X 10*3/uL (0.20-1.00); Monocytes % (A) 5.5 %; NRBC Per 100 WBC 0 X 10*3/uL (0.00-0.01); Neutrophils # (A) 8.93 X 10*3/uL (1.80-7.70); Neutrophils % (A) 79.6 %; Platelet Count 306 X 10*3/uL (140-440); RBC 4.77 X 10*6/uL (4.10-5.20); RDW 13.9 % (11.5-14.5); WBC 11.22 X 10*3/uL (4.50-10.00)
== END | disposition home or self-care (01) ==
LOC: LABWHC1 11:05
PROVIDERS: ATTEND Family Medicine
DX: K57.32 Diverticulitis of large intestine without perforation or abscess without bleeding (principal); R73.01 Impaired fasting glucose
CPT/HCPCS: 36415; 83036; 85025

== ENCOUNTER → 2024-05-09 | Outpatient (CLI) | payer MEDICARE ==
[2024-05-09 11:35] LABS: Basophils % (A) 0 %; Eosinophils # (A) 0.3 k/uL (0-0.7); Eosinophils % (A) 3 %; HCT 44.5 % (34.0-46.0); HGB 14.2 gm/dL (11.4-16.0); Lymphocytes # (A) 1.3 k/uL (1.0-4.8); Lymphocytes % (A) 12 %; MCH 29.6 pg (25.0-35.0); MCV 92.6 fL (80.0-100.0); Mean Platelet Volume 7.5; Monocytes # (A) 0.4 k/uL (0-1.0); Monocytes % (A) 4 %; Neutrophils % (A) 81 %; Platelet Count 295 k/uL (150-450); RDW 14.1 % (11.5-15.5); WBC 11.1 k/uL (3.8-10.6)
[2024-05-09 14:07] LABS: RBC Morphology Normal
== END | disposition home or self-care (01) ==
LOC: LABWHC1 11:09
PROVIDERS: ATTEND Family Medicine
DX: D72.829 Elevated white blood cell count, unspecified (principal)
CPT/HCPCS: 36415; 85025

== ENCOUNTER → 2024-06-28 | Outpatient (CLI) | payer MEDICARE ==
--- NOTE | 2024-06-28 10:00 | XR ---
EXAMINATION TYPE: XR foot complete RT DATE OF EXAM: 06/28/2024 9:50 AM INDICATION: Patient age:Female; 68 years old; Reason for study: S99.921A UNSPECIFIED INJURY OF RIGHT FOOT, INITIAL; PHH. pain COMPARISON: None TECHNIQUE: The right foot was examined in the AP, oblique, and lateral projections. FINDINGS: No evidence of any acute osseous pathology. No evidence of soft tissue swelling. No osseous erosions . Joints are preserved. Incidental note is made of symphalangism of the fifth distal interphalangeal joint. Bipartite medial sesamoid bone. No radiopaque foreign bodies. Moderate sized plantar calcaneal enthesophyte. IMPRESSION: No evidence of acute fracture. [facility], , 06/28/2024 9:58 AM
== END | disposition home or self-care (01) ==
LOC: RADXRMAIN 09:35
PROVIDERS: ATTEND Family Medicine
DX: S99.921A Unspecified injury of right foot, initial encounter (principal); X58.XXXA Exposure to other specified factors, initial encounter

== ENCOUNTER → 2024-07-04 | Outpatient (CLI) | payer MEDICARE ==
--- NOTE | 2024-07-04 09:06 | MR ---
EXAMINATION TYPE: MR cspine/tspine wo con DATE OF EXAM: 07/04/2024 7:04 AM COMPARISON: None. CLINICAL INDICATION: Female, 68 years old with history of M54.2,M47.812,M40.00, Neck and mid back alexia n. Hx breast cancer 2020. TECHNIQUE: Multiplanar, multisequence imaging of the cervical and thoracic spine is performed without IV contrast. COMPARISON: None FINDINGS: CERVICAL SPINE: No craniocervical junction abnormality, predental space widening, or prevertebral soft tissue swellin g. Moderate degenerative disc disease especially C4-C7 levels with a desiccated, narrowed, and bulging d iscs. Ligamentum flavum thickening scattered throughout the cervical spine. Scattered variable hypertrophic facet arthropathy throughout the cervical spine as well. Degenerative grade 1 anterolisthesis C4-C5 and T2-T3. Remaining alignment is maintained. Bulging disks and disc osteophyte complexes impress on the ventral thecal sac contributing to very mi ld narrowing of the spinal canal at C4-C7 levels. No large focal disc herniation or significant spina l canal stenosis. At C3-C4, moderate hypertrophic facet arthropathy on the left, contribute to mild left neural foramin al stenosis. At C4-C5, moderate to severe hypertrophic facet arthropathy and moderate uncovertebral joint arthropa thy on the left contribute to moderate to severe left neural foraminal stenosis. Lesser changes on th e right contribute to mild right foraminal stenosis. At C5-C6, moderate uncovertebral joint and facet arthropathy on the left and efkg-yb-aodprnjf on the right continues to moderate left greater than right neural foraminal stenosis. At C6-C7, moderate left greater than right uncovertebral joint and facet arthropathy. Superimposed le ft intraforaminal disc bulge. Possible moderate to severe left and awiw-rs-tvstmzsz right neuroforami nal stenosis. At C7-T1, mild facet arthropathy without significant foraminal stenosis. No suspicious bone marrow replacement. No prevertebral or paravertebral soft tissue abnormality seen. THORACIC SPINE: There is a levoconvex scoliosis of the upper thoracic spine as well as an accentuated mid to lower th oracic kyphosis. Scattered moderate facet arthropathy upper and lower thoracic spine. Moderate degenerative disc disease with desiccated and bulging disks throughout. Degenerative grade 1 anterolisthesis T2-T3. Remaining alignment is maintained. Fatty matrix hemangioma within the T12 vertebral body. However, there is an indeterminate round T1 an d T2 hypointense lesion measuring 6 mm involving the anterior aspect of the T8 vertebral body, referr ed to sagittal image 11. Otherwise, no suspicious osseous lesion is seen. Minimal superior endplate deformity at T4 and T7 shows no marrow edema compatible with remote injurie s. Largest posterior disc bulges at T9-T10 characterized by right paracentral protrusion causing mild sp inal canal stenosis and some impression on the right ventral cord but without cord compression. Small er right paracentral protrusions at T7-T8 and T8-T9. No T2-weighted cord signal abnormality identified when correlating with the axial series. No prevertebral or paravertebral soft tissue abnormality. No significant neuroforaminal stenosis clearly identified. IMPRESSION: CERVICAL SPINE: 1. Moderate multilevel spondylotic change especially from C4 through C7 levels. Degenerative grade 1 anterolisthesis C4-C5. 2. Bulging disks and disc osteophyte complexes from C4 to C7 levels contribute to mild narrowing of t he spinal canal. No large focal disc herniation or significant spinal canal stenosis. 3. Variable neuroforaminal stenoses as outlined above, particularly on the left. Moderate to severe a t C4-C5 and C6-C7. In addition, there appears to be a superimposed left intraforaminal disc bulge at C6-C7 further narrowing the left neuroforamen. THORACIC SPINE: 4. Levoconvex scoliosis upper thoracic spine and accentuated mid to lower thoracic kyphosis. 5. Vrxc-lr-dgjzvdxm facet arthropathy upper and lower thoracic spine. Degenerative grade 1 anterolist hesis T2-T3. 6. Indeterminate 6 mm lesion anterior T8 vertebral body shows low signal on both T1 and T2 sequences. Atypical hemangioma as a possibility. Osseous metastatic disease is a differential consideration. Co rrelate with clinical symptoms and oncologic assessment. Depending on clinical suspicion, nuclear med icine whole body bone scan versus MRI follow-up can be considered. 7. Scattered small posterior disc protrusions, largest is right paracentral at T9-T10 where there is mild spinal canal stenosis. No canal compromise or cord compression. [facility], Workstation: [id number], 07/04/2024 9:04 AM
== END | disposition home or self-care (01) ==
LOC: RADMRIMAIN 05:56
PROVIDERS: ATTEND Orthopaedic Surgery
DX: M51.14 Intervertebral disc disorders with radiculopathy, thoracic region (principal); M25.78 Osteophyte, vertebrae; M47.22 Other spondylosis with radiculopathy, cervical region; M43.12 Spondylolisthesis, cervical region; M41.84 Other forms of scoliosis, thoracic region; M43.14 Spondylolisthesis, thoracic region; M48.02 Spinal stenosis, cervical region; Z85.3 Personal history of malignant neoplasm of breast
CPT/HCPCS: 72141; 72146

== ENCOUNTER → 2024-07-14 | Outpatient (CLI) | payer MEDICARE ==
--- NOTE | 2024-07-14 13:08 | US ---
EXAMINATION TYPE: US venous doppler duplex LE DATE OF EXAM: 07/14/2024 12:39 PM COMPARISON: NONE CLINICAL INDICATION: Female, 68 years old with history of M54.10 RADICULOPATHY, SITE UNSPECIFIED; Mahesh n, Pain TECHNIQUE: The lower extremity deep venous system is examined utilizing real time linear array sonog jaqueline with graded compression, color doppler sonography, and spectral doppler. SIDE PERFORMED: Bilateral FINDINGS: VESSELS IMAGED: Common Femoral Vein Deep Femoral Vein Greater Saphenous Vein * Femoral Vein Popliteal Vein Small Saphenous Vein * Proximal Calf Veins (* superficial vessels) Right Leg: Negative for DVT, Color Doppler imaging shows patency of the vessels. Spectral waveforms are within normal limits. Left Leg: Negative for DVT, Color Doppler imaging shows patency of the vessels. Spectral waveforms a re within normal limits. IMPRESSION: No ultrasound evidence for acute deep venous thrombosis in either lower extremity. [facility], , 07/14/2024 1:06 PM
== END | disposition home or self-care (01) ==
LOC: RADUSWWP 12:17
PROVIDERS: ATTEND Family Medicine
DX: M54.10 Radiculopathy, site unspecified (principal)
CPT/HCPCS: 93970

== ENCOUNTER → 2024-08-01 | Outpatient (CLI) | payer MEDICARE ==
--- NOTE | 2024-08-01 15:14 | NM ---
INDICATION: Patient age:Female; 69 years old; Reason for study: C50.411 MALIG NEOPLM OF UPPER-OUTER QUADRANT OF RI; H. COMPARISON: MR C-spine/T-spine 07/04/2024. TECHNIQUE: Intravenous administration of 23.0 mCi of Technetium 99m-Medronate followed by multiple sc intigraphic images of the appendicular and axial skeleton. Additionally, small field of view planar a nterior and posterior images of the lumbosacral spine and pelvis. Lastly, small [id number] anterio r, posterior and lateral views of the chest were submitted for review. FINDINGS: No abnormal uptake is identified within the appendicular or axial skeleton to suggest metastatic dise ase. No focal increased radiotracer uptake identified within the thoracic spine corresponding to kenia or MRI finding. There is increased uptake within the bilateral shoulder, bilateral mid foot, and bilateral knees cons istent with degenerative changes. No other photopenic areas or areas of increased activity are identi fied. Physiologic radiotracer activity is demonstrated in the kidneys and bladder. IMPRESSION: No convincing evidence to suggest osseous metastatic disease. [facility], , 08/01/2024 3:12 PM
== END | disposition home or self-care (01) ==
LOC: RADNMMAIN 10:26
PROVIDERS: ATTEND Internal Medicine Hematology & Oncology
DX: C50.411 Malignant neoplasm of upper-outer quadrant of right female breast (principal)
CPT/HCPCS: 78306; A9503

== ENCOUNTER → 2024-08-05 | Outpatient (CLI) | payer MEDICARE ==
--- NOTE | 2024-08-06 12:53 | MR ---
EXAMINATION TYPE: MR brain and iac wo/w con DATE OF EXAM: 08/05/2024 8:21 PM COMPARISON: 07/06/2023. CLINICAL INDICATION: Female, 69 years old with history of D33.3 BENIGN NEOPLASM OF CRANIAL NERVES; PH H, recheck acoustic neuroma. Left ear completely deaf. TECHNIQUE: Multi planar, multi sequence imaging was performed through the brain. Specialized thin s equences were obtained through the internal auditory canals. Pre-and post gadolinium sequences were obtained. IV Contrast: 9 mL Gadobutrol FINDINGS: The jeffers-white junctions, ventricular system, and cisterns appear unremarkable. Scattered foci of hi gh T2 signal intensity are seen within the periventricular white matter. Midline structures show no a bnormality. Diffusion-weighted imaging shows no evidence of restricted diffusion. The susceptibility weighted images do not reveal any evidence for micro-hemorrhage. The bone marrow signal is within normal limits. Paranasal sinuses and mastoid air cells: Mild scattered paranasal sinus disease. Visualized orbits: Orbital contents are intact. After administration of gadolinium, no abnormal enhancement is seen. Left: Stable enhancement of the left vestibule and cochlea with small area of enhancement measuring 3 mm in the internal auditory canal which is thought to extend through the cochlea aperture and into t he basilar turn of the cochlea and vestibule and possibly the lateral semicircular canal. Comparison for growth is difficult from 10/04/2022 given non-IAC technique on prior exam. The right internal auditory canal sequences demonstrate no significant irregularity. The 7th cranial nerves, 8 cranial nerves, and cerebellar pontine angles appear unremarkable. After the administrati on gadolinium, no abnormal enhancement is seen within the internal auditory canals. Vascular loop: None. IMPRESSION: 1. Stable small nodule of enhancement near the internal auditory Canal cochlea aperture which extend s through the aperture into the basilar turn of the cochlea as well as suspected into the vestibule a nd lateral semicircular canal. 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 2. No evidence of intracranial mass nor acute/subacute CVA. 3. No evidence of right internal auditory canal abnormality. 4. Nonspecific white matter changes, likely secondary to small vessel ischemic disease. 5. [facility], , 08/06/2024 12:51 PM
== END | disposition home or self-care (01) ==
LOC: RADMRIMAIN 19:10
PROVIDERS: ATTEND Otolaryngology Otology & Neurotology
DX: D33.3 Benign neoplasm of cranial nerves (principal); H91.90 Unspecified hearing loss, unspecified ear
CPT/HCPCS: 70553; A9585

== ENCOUNTER → 2024-09-23 | Outpatient (CLI) | payer MEDICARE ==
--- NOTE | 2024-09-23 13:59 | MR ---
INDICATION: Patient age:Female; 69 years old; Reason for study: M54.5 Lumbar pain; PHH. COMPARISONS: MR C-spine/T-spine 07-17, nuclear medicine bone scan 08/01/2024, lumbosacral spine radiogra ph 03/28/2024. TECHNIQUE: Multi planar, multi sequence imaging was performed utilizing: T1-weighted, T2-weighted, a nd turbo inversion recovery imaging of the lumbar spine. The patient was not given contrast. FINDINGS: The lumbar vertebral bodies do have preserved heights. Minimal grade 1 anterolisthesis of L4 on L5 without evidence of pars defects. Multilevel disc desiccation is present without significant disc height loss. T1/T2 hyperintense small vertebral hemangioma involving the T12 vertebral body. R emaining bone marrow signal is normal. The conus medullaris and the distal spinal cord do appear unre markable with regards to their signal intensity and morphology. L1-L2: No significant disc pathology is identified. The spinal canal and neural foramen are patent. L2-L3: Minimal broad-based disc bulge. No spinal canal or neural foraminal stenosis. L3-L4: Minimal broad-based disc bulge. No spinal canal stenosis. No neural foraminal stenosis. L4-L5: Broad-based disc bulge with minimal effacement of the anterior thecal sac. No significant spin al canal stenosis. Ligamentum flavum buckling and bilateral facet enlargement. Mild bilateral neural foraminal stenosis. L5-S1: Broad-based disc bulge with minimal effacement of the anterior thecal sac. No significant spin al canal stenosis. Bilateral facet enlargement. No significant neural foraminal stenosis. Other significant findings: None. IMPRESSION: 1. No definitive evidence for disc herniation or significant spinal canal stenosis. 2. Mild multilevel disc degeneration with associated osteoarthritic changes as described above. 3. Minimal grade 1 anterolisthesis of L4 on L5 without pars defects. [facility], , 09/23/2024 1:56 PM
== END | disposition home or self-care (01) ==
LOC: RADMRIMAIN 12:57
PROVIDERS: ATTEND Orthopaedic Surgery
DX: M51.360 Other intervertebral disc degeneration, lumbar region with discogenic back pain only (principal); R26.81 Unsteadiness on feet; M43.16 Spondylolisthesis, lumbar region
CPT/HCPCS: 72148